=== PATIENT | male | born 1995 | race Two or more races ===

== ENCOUNTER 2019-07-14 17:30 | Emergency (ER) | payer MEDICAID ==
--- NOTE | 2019-07-14 17:42 | ED Physician Chart ---
ED Chief Complaint/HPI - Patient Information Date Seen:: 07/14/19 Time Seen:: 17:37 Chief Complaint:: a sore lump in the buttock area History of Present Illness:: this is a 24 yo male with concern over a small tender lump in the center of the buttocks that developed over the last three days. he denies all other medical problems except he has a mental disorder and is taking medication for it. Allergies:: Allergies Allergy/AdvReac Type Severity Reaction Status Date / Time SHRIMP Allergy Uncoded 07/03/13 07:58 Historian:: Patient Review:: Nurse's Note Reviewed, Old Chart Reviewed ED Review of Systems - Review of Systems Skin: Skin lesions (small skin infection of the buttocks area) Psychiatric: Prior psych history ED Past Medical History - Past Medical History Obtainable: Yes Past Medical History: Other (psychosis) Family History: None Social History: Smoker, No Alcohol, Illicit Drug Use (thc) Surgical History: None Psychiatricy History: Depression, Schizophrenia Medication: Reviewed Family Medical History - Family Member Mother History Unknown: Yes Living Status: Still Living Hx Family Diabetes: Yes ED Physical Exam - Physical Examination General/Constitutional: Awake, Well-developed, well-nourished, Alert, No distress, GCS 15, Non-toxic appearing, Ambulatory Head: Atraumatic Eyes: Lids, conjuctiva normal, PERRL, EOMI Skin: Nl inspection, No rash, No skin lesions (there is a 1/2 cm skin abscess on the buttock, painful to touch, soft and red but not hot.), No ecchymosis, Well hydrated, No lymphadenopathy ENMT: External ears, nose nl, Nasal exam nl, Lips, teeth, gums nl Neck: Nontender, Full ROM w/o pain, No JVD, No nuchal rigidity, No bruit, No mass, No stridor Respiratory: Nl effort/Exclusion, Clear to Auscultation, No Wheeze/Rhonchi/Rales Cardio Vascular: RRR, No murmur, gallop, rubs, NL S1 S2 GI: No tenderness/rebounding/guarding, No organomegaly, No hernia, Normal BS's, Nondistended, No mass/bruits, No McBurney tenderness : No CVA tenderness Extremities: No tenderness or effusion, Full ROM, normal strength in all extremities, No edema, Normal digits & nails Neuro/Psych: Alert/oriented, DTR's symmetric, Normal sensory exam, Normal motor strength, Judgement/insight normal, Mood normal, Normal gait, No focal deficits Misc: Normal back, No paraspinal tenderness ED Assessment - Assessment General Assessment: infected pilonadal cyst it is no large, hot or red but is tender ED Septic Shock - . Is Septic Shock (SBP<90, OR Lactate>4 mmol\L) present?: No ED Reassessment (Disposition) - Reassessment Reassessment Condition:: Improved - Diagnosis Diagnosis:: pilonidal cyst - Aftercare/Follow up Instructions Aftercare/Follow-Up Instructions:: Counseled pt regarding lab results/diagnosis & need follow up, Refer to Discharge Instructions, Counseled pt & family regarding lab results/diagnosis & need follow up Medication Prescribed:: [id number] follow up with your doctor on tuesday. - Patient Disposition Discharge/Transfer:: Home Condition at Disposition:: Improved
== END 2019-07-14 18:06 | disposition home or self-care (01) ==
LOC: ER 17:30
DX: L05.91 Pilonidal cyst without abscess (principal); F32.9 Major depressive disorder, single episode, unspecified; F20.9 Schizophrenia, unspecified; F17.200 Nicotine dependence, unspecified, uncomplicated; Z91.013 Allergy to seafood
CPT/HCPCS: 99283; 96372; J0696; Z7502